=== PATIENT | male | born 1980 | race Caucasian/White ===

== ENCOUNTER → 2023-09-06 14:06 | Outpatient (REF) | payer OTHER, SELFPAY | LOC: RCS 14:06 | PROVIDERS: ATTENDING PHYSICIAN Internal Medicine Cardiovascular Disease; FAMILY PHYSICIAN Internal Medicine | DX: R07.89 Other chest pain (principal); Z82.3 Family history of stroke; Z72.0 Tobacco use; E78.2 Mixed hyperlipidemia | CPT/HCPCS: 93017 ==

== ENCOUNTER → 2023-09-07 14:49 | Outpatient (REF) | payer OTHER, SELFPAY | LOC: RCS 14:49 | PROVIDERS: ATTENDING PHYSICIAN Internal Medicine Cardiovascular Disease; FAMILY PHYSICIAN Internal Medicine | DX: R07.89 Other chest pain (principal); Z82.3 Family history of stroke; Z72.0 Tobacco use; E78.2 Mixed hyperlipidemia | CPT/HCPCS: 93306 ==